=== PATIENT | male | born 1945 | race Caucasian/White ===

== ENCOUNTER 2016-10-13 10:55 | Emergency (ER) | payer OTHER, MEDICARE ==
[2016-10-13 14:21] LABS: HEMOGLOBIN 13.5 gm/dl (14.0-17.5); RED BLOOD COUNT 4.17 M/UL (4.20-5.50); WHITE BLOOD COUNT 12.6 K/UL (4.5-11.0)
[2016-10-13 14:42] LABS: BUN/CREATININE RATIO 9 (0-10)
[2017-03-16] MEDS ORDERED: IBUPROFEN800 MG PO (17:43)
[2017-03-16] MEDS ORDERED: FLEXERIL 10 MG10 MG PO (17:43)
[2017-03-16] MEDS ORDERED: PREDNISONE 10 M10 MG PO (17:44)
[2017-03-16] MEDS ORDERED: PLAVIX 75 MG TA75 MG PO (17:45)
[2017-03-16] MEDS ORDERED: LABETALOL HCL100 MG PO (17:45)
[2017-03-16] MEDS ORDERED: ANORO ELLIPTA1 EACH INH (17:46)
[2017-03-16] MEDS ORDERED: LIDOCAINE OINTMENT (17:48)
[2017-03-16] MEDS ORDERED: BUPROPION HCL150 M1 PO (17:49)
[2017-03-16] MEDS ORDERED: COZAAR 25MG TAB25 MG PO (17:50)
[2017-03-16] MEDS ORDERED: NEXIUM40 MG PO (17:51)
[2017-03-16] MEDS ORDERED: ETODOLAC500 MG PO (17:52)
[2017-03-16] MEDS ORDERED: TOPROL XL50 MG PO (17:53)
[2017-03-16] MEDS ORDERED: CRESTOR 10 MG T10 MG PO (17:54)
[2017-03-16] MEDS ORDERED: VENTOLIN HFA 66.7 GM INH (18:03)
[2017-03-16] MEDS ORDERED: NORVASC 5 MG TAB5 MG PO (18:05)
[2017-03-20] MEDS ORDERED: ASPIRIN EC81 MG PO (15:33)
[2017-03-20] MEDS ORDERED: LASIX20 MG PO (15:35)
[2017-03-20] MEDS ORDERED: IMDUR ER TAB 3030 MG PO (15:36)
[2017-03-20] MEDS ORDERED: ENTRESTO PO (15:40)
[2017-03-20] MEDS ORDERED: ALDACTONE 25MG25 MG PO (15:41)
== END 2016-10-13 19:00 | disposition home or self-care (01) ==
LOC: ER1 10:55
PROVIDERS: Emergency Medicine
DX: S16.1XXA Strain of muscle, fascia and tendon at neck level, initial encounter (principal); R10.9 Unspecified abdominal pain; I25.10 Atherosclerotic heart disease of native coronary artery without angina pectoris; I73.9 Peripheral vascular disease, unspecified; F17.210 Nicotine dependence, cigarettes, uncomplicated; X58.XXXA Exposure to other specified factors, initial encounter; Y93.89 Activity, other specified; Y92.410 Unspecified street and highway as the place of occurrence of the external cause; Z79.82 Long term (current) use of aspirin; Z79.02 Long term (current) use of antithrombotics/antiplatelets; Z79.899 Other long term (current) drug therapy; Z88.2 Allergy status to sulfonamides; Z88.5 Allergy status to narcotic agent
CPT/HCPCS: 36415; 70450; 71020; 71260; 72125; 80053; 83690; 85025; 85610; 85730; 93005; 96360; 99284; J7050; Q9962

== ENCOUNTER → 2016-10-17 | Outpatient (CLI) | payer MEDICARE, OTHER ==
[~2016-10-17] MED LIST: ALDACTONE 25MG25 MG PO; ANORO ELLIPTA1 EACH INH; ASPIRIN EC81 MG PO; BUPROPION HCL150 M1 PO; COZAAR 25MG TAB25 MG PO; CRESTOR 10 MG T10 MG PO; ENTRESTO PO; ETODOLAC500 MG PO; FLEXERIL 10 MG10 MG PO; IBUPROFEN800 MG PO; IMDUR ER TAB 3030 MG PO; LABETALOL HCL100 MG PO; LASIX20 MG PO; LIDOCAINE OINTMENT; NEXIUM40 MG PO; NORVASC 5 MG TAB5 MG PO; PLAVIX 75 MG TA75 MG PO; PREDNISONE 10 M10 MG PO; TOPROL XL50 MG PO; VENTOLIN HFA 66.7 GM INH
== END ==
LOC: KOH-I 10:25
DX: R05 Cough (principal); R06.00 Dyspnea, unspecified; J43.9 Emphysema, unspecified
CPT/HCPCS: 71020

== ENCOUNTER → 2016-12-04 | Outpatient (CLI) | payer MEDICARE, OTHER | LOC: KOH-I 08:40 | DX: M25.531 Pain in right wrist (principal); R60.0 Localized edema; M25.831 Other specified joint disorders, right wrist | CPT/HCPCS: 73221 ==

== ENCOUNTER → 2021-03-22 | Outpatient (CLI) | payer MEDICARE, OTHER ==
[~2021-03-22] MED LIST changes: +AMLODIPINE BESYL5 MG PO; +AUGMENTIN 875-1 EACH PO; +CRESTOR5 MG PO; +ENTRESTO 24 MG1 EACH PO; -ENTRESTO PO; +FUROSEMIDE20 MG PO; +GINKGO60 MG PO; +HYDROCODON-ACE1 EAC4 PO; +HYDROCODON-ACE1 EAC6 PO; +IBU800 MG PO; +ISOSORBIDE MONO30 MG PO; +LEVAQUIN500 MG PO; +LEVAQUIN750 MG PO; +MEDROL DOSEPAK 24 MG PO; +METOPROLOL SUCC25 MG PO; +NITROSTAT0.4 MG PO; +NITROSTAT0.4 MG SL; +NORCO 5-325 TA1 EACH PO; +PLAVIX75 MG PO; +SPIRONOLACTONE25 MG PO; +THERAGRAN M TAB1 EA PO; +TOPROL XL25 MG PO; -TOPROL XL50 MG PO; +TYLENOL 325MG325 MG PO; +VANCO-0.9%1.25 GM/25 IV; +VANCOMYCIN HCL1 GM IV; +VANCOMYCIN IV; +VENTOLIN INH INH; +WELLBUTRIN SR150 M1 PO; +XOPENEX0.63 MG/3 INH
== END ==
LOC: ECHO 08:30
DX: I20.9 Angina pectoris, unspecified (principal); I50.20 Unspecified systolic (congestive) heart failure; I42.9 Cardiomyopathy, unspecified; R00.2 Palpitations; I08.1 Rheumatic disorders of both mitral and tricuspid valves; I27.20 Pulmonary hypertension, unspecified
CPT/HCPCS: ECHO; 78452; 93306; A9502; J2785

== ENCOUNTER → 2021-06-08 | Outpatient (CLI) | payer MEDICARE, OTHER | LOC: CATH 11:08 | DX: I25.118 Atherosclerotic heart disease of native coronary artery with other forms of angina pectoris (principal); I25.82 Chronic total occlusion of coronary artery; I11.0 Hypertensive heart disease with heart failure; I50.22 Chronic systolic (congestive) heart failure; I42.0 Dilated cardiomyopathy; I25.5 Ischemic cardiomyopathy; E78.5 Hyperlipidemia, unspecified; K21.9 Gastro-esophageal reflux disease without esophagitis; J44.9 Chronic obstructive pulmonary disease, unspecified; I44.7 Left bundle-branch block, unspecified; I25.2 Old myocardial infarction; I27.20 Pulmonary hypertension, unspecified; F17.210 Nicotine dependence, cigarettes, uncomplicated; Z95.810 Presence of automatic (implantable) cardiac defibrillator; Z95.820 Peripheral vascular angioplasty status with implants and grafts | CPT/HCPCS: 99152; 99153; C1760; C1769; J1644; J2250; J3010; J7040; Q9965 ==